=== PATIENT | male | born 1945 | race Two or more races ===

== ENCOUNTER 2017-05-21 09:00 | Outpatient (CLI) | payer MEDICARE, MEDICAID ==
[2017-05-21] MEDS ORDERED: UNOBMED (09:25)
--- NOTE | 2017-05-21 09:26 | GI Initial Consult Note ---
LinAminta Rivero N.P. 05/21/17 0926: History of Present Illness General Date patient seen: May 21, 2017 Time patient seen: 09:24 Referring physician: DENIZ Reason for Consultation: ROUTINE COLONOSCOPY Present Illness HPI 72 year old male referred by Dr. Castaneda for routine colonoscopy. Patient presents today with no GI symptoms. Ambulatory, NAD. Denies any unintentional weight loss or changes in dietary habits. No signs of abuse or neglect. Patient is not fall risk. States he takes BP meds, but unable to recall them at this time. Home Meds Reported Medications Unable to Obtain Medications (UNABLE TO OBTAIN MEDS) 1 Ea Ea 05/21/17 Allergies: Coded Allergies: No Known Allergies (Unverified , 05/21/17) Patient History History Provided By: Patient PMH Narrative HTN Past Surgical History: Brain surgery in 1985. Pertinent Family History: none Social History: Denies: smoking, alcohol use, drug use, other Review of Systems All Other Systems: negative except mentioned in HPI Physical Exam T 97.7 BP 154/78 P 60 99 RA WT 124.3 lbs HT 5'2 Sp02 EP Interpretation: reviewed, normal General Appearance: well appearing, no apparent distress, alert Head: normocephalic EENT: PERRL/EOMI, normal ENT inspection Neck: supple Respiratory: normal breath sounds, no respiratory distress Cardiovascular: normal rate Gastrointestinal: normal inspection, non tender, soft, normal bowel sounds, non -distended Rectal: deferred Genitourinary: deferred Musculoskeletal: normal inspection, back normal Neurologic: normal inspection, alert, oriented x3, responsive Psychiatric: normal inspection, judgement/insight normal, memory normal Skin: normal inspection, normal color, no rash, warm/dry, palpation normal, well hydrated Lymphatic: normal inspection, no adenopathy GI: Plan Problems: (1) HTN (hypertension) (2) Colonoscopy planned Plan Colonoscopy scheduled 05/31/17. - CLD & (Nulytely/Suprep/Movi-Prep) prep instructions given and acknowledged by patient. - NPO @ [place] day prior procedure explained. Seen with Dr. Hunter. Thank you for this patient referral. GEORGE HUNTER 05/22/17 1245: History of Present Illness Present Illness Home Meds Reported Medications Unable to Obtain Medications (UNABLE TO OBTAIN MEDS) 1 Ea Ea 05/21/17 Allergies: Coded Allergies: No Known Allergies (Unverified , 05/21/17) Patient History Social History Narrative The patient was seen and examined at bedside and all new and available data was reviewed in the patients chart. I agree with the above findings, impression and plan. (Patient seen earlier today. Signature stamp does not reflect patient encounter time.). - MD Lin Berry Anh Mat N.Jaime May 21, 2017 09:26 GEORGE HUNTER May 22, 2017 12:45
[2017-05-21 13:39] VITALS: BP 154/78
== END 2017-05-21 09:37 | disposition home or self-care (01) ==
LOC: PAN 09:00
DX: I10 Essential (primary) hypertension (principal)
CPT/HCPCS: 99201